=== PATIENT | female | born 1950 | race Two or more races ===

== ENCOUNTER 2019-01-21 02:21 | Inpatient (IN) | payer MEDICAID ==
[~2019-01-21] VITALS: Ht 160 cm; Wt 60.5 kg
[2019-01-21] MEDS ORDERED: ONDANSETRON HCL 4MG/2ML INJ IV STA (02:39)
[2019-01-21] MEDS ORDERED: ASPIRIN 81MG TABLET PO ONE ×2 (02:45→04:15)
[2019-01-21] MEDS ORDERED: LABETALOL HCL 20MG/4ML CARPUJECT IV ONE (02:45)
[2019-01-21 03:05] LABS: EOSINOPHILS % 1.2 % (0.0-5.0); HEMATOCRIT. 35.8 % (36.0-48.0); HEMOGLOBIN. 12.2 g/dL (12.0-16.0); LYMPHOCYTES % 14.7 % (20.0-50.0); MEAN CORPUSCULAR HEMOGLOBIN 30.6 pg (28.0-32.0); MEAN CORPUSCULAR VOLUME 89.8 fL (81.0-99.0); MEAN PLATELET VOLUME 8.8 fl (7.4-10.4); MONOCYTES % 7.1 % (2.0-8.0); PLATELET 288 x1000/uL (130-400); RED BLOOD CELL COUNT 3.99 mill/uL (4.2-5.4); RED CELL DISTRIBUTION WIDTH 14.4 % (11.6-14.6)
[2019-01-21 03:08] LABS: CHLORIDE 102 mEq/L (98-107)
[2019-01-21] MEDS ORDERED: POTASSIUM CHLORIDE 20MEQ TABLET SR PO ONE ×2 (03:30)
[2019-01-21] MEDS ORDERED: FUROSEMIDE 40MG/4ML VIAL IVP ONE (04:15)
[2019-01-21] MEDS ORDERED: ONDANSETRON HCL 4MG/2ML INJ IV PRN (06:30)
[2019-01-21] MEDS ORDERED: CLONIDINE 0.1MG TABLET PO PRN (06:30)
[2019-01-21] MEDS ORDERED: IPRATROPIUM/ALBUTEROL 0.5-3(2.5)MG/3ML NEB INH PRN (06:30)
[2019-01-21] MEDS ORDERED: MAGNESIUM/ALUMINUM HYDROXIDE/SIMETHICONE 30ML UDC PO PRN (06:30)
[2019-01-21] MEDS ORDERED: ENOXAPARIN 40MG/0.4ML SYR SUBCUT SCH (06:30)
[2019-01-21] MEDS ORDERED: GUAIFENESIN 200MG/10ML SUGAR FREE UDC PO PRN (06:30)
[2019-01-21] MEDS ORDERED: ACETAMINOPHEN 325MG TABLET PO PRN (06:30)
[2019-01-21 06:56] LABS: PHOSPHORUS 3.7 mg/dL (2.5-4.9)
[2019-01-21 12:15] VITALS: BP 165/78
[2019-01-21] MEDS: LOSARTAN POTASSIUM 50 MG TABLET PO SCH (13:46)
[2019-01-21] MEDS: POTASSIUM CHLORIDE 20MEQ TABLET SR PO SCH (13:46)
[2019-01-21] MEDS: CARVEDILOL 12.5MG TABLET PO SCH ×2 (13:47→21:00)
[2019-01-21] MEDS: ENOXAPARIN 30MG/0.3ML SYR SUBCUT SCH (13:48)
[2019-01-21 16:17] VITALS: BP 147/73
[2019-01-21 16:42] LABS: CREATINE KINASE 39 IU/L (26-192)
[2019-01-21 16:43] LABS: CREATINE KINASE MB FRACTION < 1.0 ng/mL (0.5-3.6)
[2019-01-21] MEDS: FUROSEMIDE 40MG/4ML VIAL IV SCH (19:50)
[2019-01-21 20:00] VITALS: BP 136/65
[2019-01-21] MEDS ORDERED: TRAM100T34 MT (20:06)
[2019-01-21] MEDS ORDERED: ASPI-1393 MT (20:06)
[2019-01-21] MEDS ORDERED: GABA-531 MT (20:06)
[2019-01-21] MEDS: IPRATROPIUM/ALBUTEROL 0.5-3(2.5)MG/3ML NEB HHN SCH (20:25)
[2019-01-21] MEDS ORDERED: DEXTROSE 50% WATER 50ML SYRINGE IV PRN (20:30)
[2019-01-21] MEDS: INSULIN LISPRO 100 UNITS/ML SUBCUT SCH (21:00)
[2019-01-21] MEDS: BLOOD SUGAR DIAGNOSTIC STRIP TEST SCH (21:11)
[2019-01-21] MEDS: HYDROCODONE/ACETAMINOPHEN 5/325MG TABLET PO PRN (21:13)
[2019-01-21 23:23] LABS: CREATINE KINASE MB FRACTION 1.1 ng/mL (0.5-3.6)
[2019-01-22] VITALS: BP 147/69
[2019-01-22] MEDS: IPRATROPIUM/ALBUTEROL 0.5-3(2.5)MG/3ML NEB HHN SCH ×4 (02:35→21:29)
[2019-01-22 04:00] VITALS: BP 123/78
[2019-01-22 05:36] LABS: BASOPHILS % 0.8 % (0.0-2.0); EOSINOPHILS % 2.7 % (0.0-5.0); HEMATOCRIT. 31.8 % (36.0-48.0); HEMOGLOBIN. 10.8 g/dL (12.0-16.0); LYMPHOCYTES % 26.7 % (20.0-50.0); MEAN CORPUSCULAR VOLUME 91.5 fL (81.0-99.0); MEAN PLATELET VOLUME 9.3 fl (7.4-10.4); NEUTROPHILS % 59.8 % (40.0-76.0); PLATELET 240 x1000/uL (130-400); RED BLOOD CELL COUNT 3.47 mill/uL (4.2-5.4); RED CELL DISTRIBUTION WIDTH 14.9 % (11.6-14.6)
[2019-01-22 05:44] LABS: CHLORIDE 106 mEq/L (98-107)
[2019-01-22 06:00] LABS: LDL CHOLESTEROL 111 mg/dL (5-100)
[2019-01-22 06:01] LABS: HDL CHOLESTEROL 25 mg/dL (40-59)
[2019-01-22] MEDS: FUROSEMIDE 40MG/4ML VIAL IV SCH ×2 (06:46→16:37)
[2019-01-22] MEDS: INSULIN LISPRO 100 UNITS/ML SUBCUT SCH (07:53)
[2019-01-22] MEDS: BLOOD SUGAR DIAGNOSTIC STRIP TEST SCH (07:53)
[2019-01-22] MEDS: CARVEDILOL 12.5MG TABLET PO SCH (09:00)
[2019-01-22] MEDS: LOSARTAN POTASSIUM 50 MG TABLET PO SCH (09:00)
[2019-01-22] MEDS: ENOXAPARIN 30MG/0.3ML SYR SUBCUT SCH (09:18)
[2019-01-22] MEDS: POTASSIUM CHLORIDE 20MEQ TABLET SR PO SCH (09:18)
[2019-01-22] MEDS: TRAMADOL 50MG TABLET PO PRN (10:48)
[2019-01-22 12:18] VITALS: BP 170/70
[2019-01-22] MEDS: GABAPENTIN 300MG CAPSULE PO SCH ×2 (14:23→21:19)
[2019-01-22] MEDS: DILTIAZEM HCL 60MG TABLET PO SCH ×3 (14:23→23:32)
[2019-01-22 20:00] VITALS: BP 146/56
[2019-01-23] VITALS: BP 154/58
[2019-01-23] MEDS: IPRATROPIUM/ALBUTEROL 0.5-3(2.5)MG/3ML NEB HHN SCH ×4 (01:23→20:23)
[2019-01-23 04:00] VITALS: BP 139/50
[2019-01-23 05:07] LABS: EOSINOPHILS % 2.6 % (0.0-5.0); HEMATOCRIT. 32.5 % (36.0-48.0); HEMOGLOBIN. 10.8 g/dL (12.0-16.0); LYMPHOCYTES % 30.9 % (20.0-50.0); MEAN CORPUSCULAR HEMOGLOBIN 30.5 pg (28.0-32.0); MONOCYTES % 10.8 % (2.0-8.0); NEUTROPHILS % 54.7 % (40.0-76.0); PLATELET 246 x1000/uL (130-400); RED BLOOD CELL COUNT 3.53 mill/uL (4.2-5.4); RED CELL DISTRIBUTION WIDTH 14.9 % (11.6-14.6)
[2019-01-23] MEDS: DILTIAZEM HCL 60MG TABLET PO SCH ×3 (06:40→17:41)
[2019-01-23] MEDS: GABAPENTIN 300MG CAPSULE PO SCH ×3 (06:41→22:19)
[2019-01-23] MEDS ORDERED: DEXTROSE 50% WATER 50ML SYRINGE IV PRN (07:45)
[2019-01-23 08:00] VITALS: BP 148/55
[2019-01-23] MEDS: INSULIN LISPRO 100 UNITS/ML SUBCUT SCH ×4 (08:10→21:00)
[2019-01-23] MEDS: POTASSIUM CHLORIDE 20MEQ TABLET SR PO SCH (08:12)
[2019-01-23] MEDS: ENOXAPARIN 30MG/0.3ML SYR SUBCUT SCH ×2 (08:12→08:17)
[2019-01-23] MEDS: FUROSEMIDE 40MG/4ML VIAL IV SCH (08:12)
[2019-01-23] MEDS: LOSARTAN POTASSIUM 50 MG TABLET PO SCH (08:12)
[2019-01-23] MEDS: BLOOD SUGAR DIAGNOSTIC STRIP TEST SCH ×4 (08:13→21:00)
[2019-01-23 12:00] VITALS: BP 139/58
[2019-01-23] MEDS: DOCUSATE SODIUM 100MG CAPSULE PO PRN (12:41)
[2019-01-23 16:00] VITALS: BP 143/62
[2019-01-23 20:00] VITALS: BP 157/73
[2019-01-23] MEDS: TRAMADOL 50MG TABLET PO PRN (22:19)
[2019-01-24] VITALS: BP 142/69
[2019-01-24] MEDS: IPRATROPIUM/ALBUTEROL 0.5-3(2.5)MG/3ML NEB HHN SCH ×3 (01:28→14:11)
[2019-01-24] MEDS: GABAPENTIN 300MG CAPSULE PO SCH ×2 (06:07→13:22)
[2019-01-24] MEDS: HYDROCODONE/ACETAMINOPHEN 5/325MG TABLET PO PRN (06:08)
[2019-01-24] MEDS: DILTIAZEM HCL 60MG TABLET PO SCH ×3 (06:11→13:22)
[2019-01-24 07:04] LABS: BASOPHILS % 1.1 % (0.0-2.0); EOSINOPHILS % 2.7 % (0.0-5.0); HEMATOCRIT. 35.6 % (36.0-48.0); HEMOGLOBIN. 11.9 g/dL (12.0-16.0); LYMPHOCYTES % 31.8 % (20.0-50.0); MEAN CORPUSCULAR HEMOGLOBIN 30.4 pg (28.0-32.0); MEAN CORPUSCULAR VOLUME 91.3 fL (81.0-99.0); MEAN PLATELET VOLUME 9.6 fl (7.4-10.4); NEUTROPHILS % 54.4 % (40.0-76.0); PLATELET 291 x1000/uL (130-400); RED CELL DISTRIBUTION WIDTH 14.9 % (11.6-14.6)
[2019-01-24] MEDS: BLOOD SUGAR DIAGNOSTIC STRIP TEST SCH ×2 (07:25→13:22)
[2019-01-24 08:00] VITALS: BP 136/58
[2019-01-24] MEDS: INSULIN LISPRO 100 UNITS/ML SUBCUT SCH ×2 (08:02→13:10)
[2019-01-24] MEDS: ENOXAPARIN 30MG/0.3ML SYR SUBCUT SCH (09:00)
[2019-01-24] MEDS ORDERED: FUROSEMIDE 40MG/4ML VIAL IV SCH (09:00)
[2019-01-24] MEDS: POTASSIUM CHLORIDE 20MEQ TABLET SR PO SCH (09:38)
[2019-01-24] MEDS: DOCUSATE SODIUM 100MG CAPSULE PO PRN (09:38)
[2019-01-24] MEDS: LOSARTAN POTASSIUM 50 MG TABLET PO SCH (09:38)
[2019-01-24 11:05] LABS: CREATINE KINASE 46 IU/L (26-192)
[2019-01-24 12:00] VITALS: BP 167/75
[2019-01-24 14:59] VITALS: BP 167/75
[2019-01-25 19:16] LABS: ANTI-NUCLEAR ANTIBODIES DIRECT Negative (Negative)
[2019-01-26 13:16] LABS: COMPLEMENT C3 122 mg/dL (82-167)
== END 2019-01-24 15:35 | disposition home or self-care (01) | DRG 194 ==
LOC: ER 02:21 → 7WST 04:48 → EDBEDREQTM 04:51 → EDBEDREQ 04:51 → ENRESERV 10:29
PROVIDERS: ADMIT Internal Medicine; ATTEND Internal Medicine
DX: I13.0 Hypertensive heart and chronic kidney disease with heart failure and stage 1 through stage 4 chronic kidney disease, or unspecified chronic kidney disease (principal); J96.00 Acute respiratory failure, unspecified whether with hypoxia or hypercapnia; N17.0 Acute kidney failure with tubular necrosis; I50.43 Acute on chronic combined systolic (congestive) and diastolic (congestive) heart failure; R73.9 Hyperglycemia, unspecified; I27.20 Pulmonary hypertension, unspecified; T50.2X5A Adverse effect of carbonic-anhydrase inhibitors, benzothiadiazides and other diuretics, initial encounter; E87.6 Hypokalemia; I42.9 Cardiomyopathy, unspecified; J44.1 Chronic obstructive pulmonary disease with (acute) exacerbation; N18.2 Chronic kidney disease, stage 2 (mild); E78.5 Hyperlipidemia, unspecified; E78.00 Pure hypercholesterolemia, unspecified; F17.210 Nicotine dependence, cigarettes, uncomplicated; I08.3 Combined rheumatic disorders of mitral, aortic and tricuspid valves; Z90.49 Acquired absence of other specified parts of digestive tract; Z91.19 Patient's noncompliance with other medical treatment and regimen; Y92.89 Other specified places as the place of occurrence of the external cause
CPT/HCPCS: 36415; 71045; 76770; 80048; 80061; 82550; 82553; 82962; 83036; 83735; 83880; 84100; 84132; 84443; 84484; 86038; 86160; 93005; 93306; 93970; 94640; 96374; 96375; 97110; 97116; 97162; 97166; 99291; J1650; J1940; J2405; J3490; J7620

== ENCOUNTER 2019-04-09 23:30 | Inpatient (IN) | payer MEDICAID ==
[~2019-04-09] VITALS: Ht 162.6 cm; Wt 52.2 kg
[~2019-04-09 23:30] MED LIST: ASPI-1393 MT; GABA-531 MT; TRAM100T34 MT
[2019-04-10] MEDS ORDERED: FUROSEMIDE 40MG/4ML VIAL IV ONE
[2019-04-10] MEDS ORDERED: NITROGLYCERIN OINT 1GM/INCH UDPKT TD ONE
[2019-04-10] MEDS ORDERED: ASPIRIN 81MG TABLET PO ONE
[2019-04-10 00:28] LABS: BASOPHILS % 0.6 % (0.0-2.0); EOSINOPHILS % 1.8 % (0.0-5.0); HEMATOCRIT. 35.4 % (36.0-48.0); HEMOGLOBIN. 11.8 g/dL (12.0-16.0); LYMPHOCYTES % 26.6 % (20.0-50.0); MEAN CORPUSCULAR HEMOGLOBIN 30.1 pg (28.0-32.0); MEAN CORPUSCULAR VOLUME 90.2 fL (81.0-99.0); MEAN PLATELET VOLUME 8.1 fl (7.4-10.4); MONOCYTES % 5.1 % (2.0-8.0); NEUTROPHILS % 65.9 % (40.0-76.0); PLATELET 236 x1000/uL (130-400); RED BLOOD CELL COUNT 3.92 mill/uL (4.2-5.4); RED CELL DISTRIBUTION WIDTH 15.9 % (11.6-14.6)
[2019-04-10 00:36] LABS: CHLORIDE 108 mEq/L (98-107)
[2019-04-10 08:00] VITALS: BP 187/67
[2019-04-10 09:31] VITALS: BP 187/67
[2019-04-10 12:00] VITALS: BP 180/65
[2019-04-10] MEDS ORDERED: LORAZEPAM 0.5MG TABLET PO PRN (12:30)
[2019-04-10] MEDS ORDERED: IPRATROPIUM/ALBUTEROL 0.5-3(2.5)MG/3ML NEB HHN PRN (12:30)
[2019-04-10] MEDS ORDERED: CLONIDINE 0.1MG TABLET PO PRN (12:30)
[2019-04-10] MEDS ORDERED: ACETAMINOPHEN 325MG TABLET PO PRN (12:30)
[2019-04-10] MEDS ORDERED: ONDANSETRON HCL 4MG/2ML INJ IV PRN (12:30)
[2019-04-10] MEDS: POTASSIUM CHLORIDE 20MEQ TABLET SR PO SCH (13:01)
[2019-04-10] MEDS: HYDROCODONE/ACETAMINOPHEN 5/325MG TABLET PO PRN ×2 (13:01→18:30)
[2019-04-10] MEDS: FUROSEMIDE 40MG/4ML VIAL IV SCH ×2 (13:02→17:33)
[2019-04-10] MEDS: LOSARTAN POTASSIUM 50 MG TABLET PO SCH (13:02)
[2019-04-10 16:00] VITALS: BP 121/64
[2019-04-10 16:01] LABS: CREATINE KINASE MB FRACTION 1.8 ng/mL (0.5-3.6)
[2019-04-10] MEDS: GABAPENTIN 300MG CAPSULE PO SCH (17:33)
[2019-04-10] MEDS: ASPIRIN 81MG EC TABLET PO SCH (17:33)
[2019-04-10 20:00] VITALS: BP 188/74
[2019-04-10] MEDS: CARVEDILOL 6.25 MG TABLET PO SCH (21:00)
[2019-04-11] VITALS (7 sets, daily range): BP systolic 158–204; BP diastolic 63–83
[2019-04-11 00:23] LABS: CREATINE KINASE 37 IU/L (26-192)
[2019-04-11 00:24] LABS: CREATINE KINASE MB FRACTION 2.1 ng/mL (0.5-3.6)
[2019-04-11] MEDS: HYDROCODONE/ACETAMINOPHEN 5/325MG TABLET PO PRN (00:42)
[2019-04-11] MEDS: CLONIDINE 0.1MG TABLET PO PRN ×2 (03:30→16:59)
[2019-04-11] MEDS: HYDROCODONE/ACETAMINOPHEN 10/325MG TABLET PO PRN ×3 (03:31→21:12)
[2019-04-11] MEDS: FUROSEMIDE 40MG/4ML VIAL IV SCH ×2 (06:23→16:42)
[2019-04-11 06:40] LABS: BASOPHILS % 0.8 % (0.0-2.0); EOSINOPHILS % 2.8 % (0.0-5.0); HEMATOCRIT. 32.4 % (36.0-48.0); LYMPHOCYTES % 37.1 % (20.0-50.0); MEAN CORPUSCULAR HEMOGLOBIN 30.3 pg (28.0-32.0); MONOCYTES % 8.2 % (2.0-8.0); NEUTROPHILS % 51.1 % (40.0-76.0); PLATELET 220 x1000/uL (130-400); RED BLOOD CELL COUNT 3.64 mill/uL (4.2-5.4); RED CELL DISTRIBUTION WIDTH 15.6 % (11.6-14.6)
[2019-04-11 07:06] LABS: PHOSPHORUS 3.5 mg/dL (2.5-4.9)
[2019-04-11] MEDS: POTASSIUM CHLORIDE 20MEQ TABLET SR PO SCH (08:32)
[2019-04-11] MEDS: CARVEDILOL 6.25 MG TABLET PO SCH (08:32)
[2019-04-11] MEDS: ASPIRIN 81MG EC TABLET PO SCH (08:32)
[2019-04-11] MEDS: LOSARTAN POTASSIUM 50 MG TABLET PO SCH ×3 (08:32→21:07)
[2019-04-11] MEDS: GABAPENTIN 300MG CAPSULE PO SCH ×3 (08:32→16:42)
[2019-04-11 09:58] LABS: *AMPHETAMINES SCREEN URINE NEGATIVE (NEGATIVE); *BARBITURATES SCREEN URINE NEGATIVE (NEGATIVE); *BENZODIAZEPINES SCREEN URINE NEGATIVE (NEGATIVE); *COCAINE SCREEN URINE NEGATIVE (NEGATIVE); METHADONE URINE SCREEN NEGATIVE (NEGATIVE); OPIATES URINE SCREEN PRESUMTIVE POSITIVE (NEGATIVE)
[2019-04-11 09:59] LABS: CANNABINOID URINE SCREEN NEGATIVE (NEGATIVE); PHENCYCLIDINE URINE SCREEN NEGATIVE (NEGATIVE)
[2019-04-11] MEDS: HYDRALAZINE HCL 50MG TABLET PO SCH (21:07)
[2019-04-12] VITALS: BP 140/55
[2019-04-12 04:00] VITALS: BP 139/51
[2019-04-12] MEDS: HYDROCODONE/ACETAMINOPHEN 10/325MG TABLET PO PRN (06:03)
[2019-04-12] MEDS: FUROSEMIDE 40MG/4ML VIAL IV SCH (06:11)
[2019-04-12 08:00] VITALS: BP 127/52
[2019-04-12] MEDS: POTASSIUM CHLORIDE 20MEQ TABLET SR PO SCH (09:19)
[2019-04-12] MEDS: GABAPENTIN 300MG CAPSULE PO SCH ×3 (09:19→16:29)
[2019-04-12] MEDS: LOSARTAN POTASSIUM 50 MG TABLET PO SCH ×2 (09:20→21:25)
[2019-04-12] MEDS: ASPIRIN 81MG EC TABLET PO SCH (09:20)
[2019-04-12] MEDS: HYDRALAZINE HCL 50MG TABLET PO SCH ×2 (09:20→21:25)
[2019-04-12 12:00] VITALS: BP 122/65
[2019-04-12 20:00] VITALS: BP 141/53
[2019-04-13] VITALS: BP 137/53
[2019-04-13 04:00] VITALS: BP 127/65
[2019-04-13 07:02] LABS: EOSINOPHILS % 3.3 % (0.0-5.0); HEMATOCRIT. 32.7 % (36.0-48.0); HEMOGLOBIN. 10.8 g/dL (12.0-16.0); LYMPHOCYTES % 40.9 % (20.0-50.0); MEAN CORPUSCULAR HEMOGLOBIN 29.9 pg (28.0-32.0); MEAN CORPUSCULAR VOLUME 90.8 fL (81.0-99.0); MONOCYTES % 9.7 % (2.0-8.0); NEUTROPHILS % 45.1 % (40.0-76.0); PLATELET 224 x1000/uL (130-400); RED BLOOD CELL COUNT 3.61 mill/uL (4.2-5.4); RED CELL DISTRIBUTION WIDTH 16.4 % (11.6-14.6)
[2019-04-13 07:04] LABS: PHOSPHORUS 5.7 mg/dL (2.5-4.9)
[2019-04-13 08:00] VITALS: BP 150/55
[2019-04-13] MEDS: LOSARTAN POTASSIUM 50 MG TABLET PO SCH ×2 (08:30→21:06)
[2019-04-13] MEDS: ASPIRIN 81MG EC TABLET PO SCH (08:30)
[2019-04-13] MEDS: GABAPENTIN 300MG CAPSULE PO SCH ×3 (08:30→17:49)
[2019-04-13] MEDS: HYDRALAZINE HCL 50MG TABLET PO SCH (08:30)
[2019-04-13] MEDS ORDERED: FUROSEMIDE 40MG TABLET PO SCH (09:00)
[2019-04-13 10:05] LABS: CLARITY URINE CLOUDY (CLEAR); COLOR URINE YELLOW (YELLOW); KETONES URINE NEGATIVE (NEGATIVE); LEUKOCYTE ESTERASE URINE 2+ (NEGATIVE); NITRITE URINE POSITIVE (NEGATIVE); OCCULT BLOOD URINE NEGATIVE (NEGATIVE); PH URINE 6.5 (4.5-8.0); PROTEIN URINE 1+ (NEGATIVE); SPECIFIC GRAVITY URINE 1.015 (1.005-1.030); UROBILINOGEN URINE 0.2 E.U./dL (0.2-1.0)
[2019-04-13 12:00] VITALS: BP 128/49
[2019-04-13] MEDS: DOCUSATE SODIUM 100MG CAPSULE PO PRN ×2 (12:08→14:47)
[2019-04-13] MEDS: SODIUM CHLORIDE 0.9% 1,000 ML IV SCH (12:20)
[2019-04-13 16:00] VITALS: BP 147/64
[2019-04-13 20:00] VITALS: BP 147/46
[2019-04-13] MEDS: HYDRALAZINE HCL 100MG TABLET PO SCH (21:06)
[2019-04-14] VITALS: BP 111/44
[2019-04-14] MEDS: HYDROCODONE/ACETAMINOPHEN 10/325MG TABLET PO PRN (03:28)
[2019-04-14 04:00] VITALS: BP 116/43
[2019-04-14 06:57] LABS: BASOPHILS % 0.9 % (0.0-2.0); EOSINOPHILS % 3.1 % (0.0-5.0); HEMOGLOBIN. 10.4 g/dL (12.0-16.0); MEAN CORPUSCULAR HEMOGLOBIN 30.4 pg (28.0-32.0); MEAN CORPUSCULAR VOLUME 90.5 fL (81.0-99.0); MONOCYTES % 10.1 % (2.0-8.0); NEUTROPHILS % 54.9 % (40.0-76.0); PLATELET 225 x1000/uL (130-400); RED BLOOD CELL COUNT 3.42 mill/uL (4.2-5.4); RED CELL DISTRIBUTION WIDTH 16.3 % (11.6-14.6)
[2019-04-14 07:10] LABS: PHOSPHORUS 6.2 mg/dL (2.5-4.9)
[2019-04-14 08:00] VITALS: BP 132/43
[2019-04-14] MEDS: ASPIRIN 81MG EC TABLET PO SCH (09:20)
[2019-04-14] MEDS: LOSARTAN POTASSIUM 50 MG TABLET PO SCH (09:21)
[2019-04-14] MEDS: GABAPENTIN 300MG CAPSULE PO SCH ×2 (09:21→12:28)
[2019-04-14] MEDS: HYDRALAZINE HCL 100MG TABLET PO SCH (09:21)
[2019-04-14] MEDS: SODIUM CHLORIDE 0.9% 1,000 ML IV SCH (09:22)
[2019-04-14 12:00] VITALS: BP 123/55
[2019-04-14] MEDS ORDERED: LOSA50TA3 PO (13:27)
[2019-04-14] MEDS ORDERED: HYDR100T26 PO (13:27)
[2019-04-14 14:06] VITALS: BP 123/55
== END 2019-04-14 14:44 | disposition home or self-care (01) | DRG 194 ==
LOC: ER 23:30 → 5WST 04-10 04:39 → EDBEDREQTM 04-10 04:41 → EDBEDREQ 04-10 04:41 → ENRESERV 04-10 07:22
PROVIDERS: ADMIT Internal Medicine; ATTEND Internal Medicine
DX: I13.0 Hypertensive heart and chronic kidney disease with heart failure and stage 1 through stage 4 chronic kidney disease, or unspecified chronic kidney disease (principal); J96.91 Respiratory failure, unspecified with hypoxia; N17.9 Acute kidney failure, unspecified; I27.20 Pulmonary hypertension, unspecified; E44.1 Mild protein-calorie malnutrition; I08.1 Rheumatic disorders of both mitral and tricuspid valves; I42.9 Cardiomyopathy, unspecified; I50.23 Acute on chronic systolic (congestive) heart failure; E78.5 Hyperlipidemia, unspecified; E87.6 Hypokalemia; R00.1 Bradycardia, unspecified; F17.200 Nicotine dependence, unspecified, uncomplicated; I16.1 Hypertensive emergency; N18.3 Chronic kidney disease, stage 3 (moderate); D64.9 Anemia, unspecified; F17.210 Nicotine dependence, cigarettes, uncomplicated; E78.00 Pure hypercholesterolemia, unspecified; Z82.49 Family history of ischemic heart disease and other diseases of the circulatory system; Z90.49 Acquired absence of other specified parts of digestive tract; Z79.82 Long term (current) use of aspirin; Z79.899 Other long term (current) drug therapy
CPT/HCPCS: 36415; 71045; 76770; 80048; 80305; 81003; 82550; 82553; 82728; 83036; 83540; 83550; 83735; 83880; 84100; 84484; 87077; 87186; 93005; 93306; 96374; 99291; A6261; J1940; J2405; J7030